=== PATIENT | male | born 1950 | race Caucasian/White ===

== ENCOUNTER 2020-12-22 12:18 | Emergency (ER) | payer OTHER ==
[2020-12-22 14:13] LABS: RED BLOOD COUNT 5.05 M/UL (4.20-5.50); WHITE BLOOD COUNT 7.1 K/UL (4.5-11.0)
[2020-12-22 14:41] LABS: BUN/CREATININE RATIO 16 (0-10)
== END 2020-12-22 18:16 | disposition home or self-care (01) ==
LOC: ER1 12:18
PROVIDERS: Physician Assistant Medical
DX: K11.8 Other diseases of salivary glands (principal); E11.9 Type 2 diabetes mellitus without complications; I10 Essential (primary) hypertension; Z90.49 Acquired absence of other specified parts of digestive tract; Z88.1 Allergy status to other antibiotic agents
CPT/HCPCS: 70487; 80053; 82150; 85025; 85610; 85652; 99283; Q9963